=== PATIENT | female | born 1935 | race Caucasian/White ===

== ENCOUNTER 2023-01-19 16:18 | Emergency (ER) | payer MEDICARE ==
[2023-01-19 16:44] LABS: BASOPHILS ABSOLUTE AUTO 0.02 K/uL (0.00-0.20); BASOPHILS PERCENT AUTO 0.3 % (0.0-2.0); EOSINOPHILS ABSOLUTE AUTO 0.13 K/uL (0.00-0.50); EOSINOPHILS PERCENT AUTO 1.8 % (0.0-5.0); HEMATOCRIT 33.9 % (34.0-46.0); HEMOGLOBIN 10.9 g/dL (11.7-15.5); LYMPHOCYTES ABSOLUTE AUTO 1.73 K/uL (0.50-3.50); LYMPHOCYTES PERCENT AUTO 24.4 % (10.0-50.0); MEAN CORPUSCULAR HGB CONC 32.2 g/dL (31.7-36.0); MEAN CORPUSCULAR VOLUME 96.3 fL (84.0-98.0); MONOCYTES ABSOLUTE AUTO 0.65 K/uL (0.00-1.00); MONOCYTES PERCENT AUTO 9.2 % (2.0-14.0); NEUTROPHILS ABSOLUTE AUTO 4.57 K/uL (1.40-7.00); NEUTROPHILS PERCENT AUTO 64.3 % (45.0-80.0); PLATELET COUNT,PLT 257 K/uL (150-350); RED BLOOD CELL COUNT 3.52 M/uL (3.77-5.09); RED CELL DISTRIBUTION WIDTH 12.3 % (11.2-14.1); WHITE BLOOD CELL COUNT,WBC 7.1 K/uL (4.0-10.2)
[2023-01-19 16:54] LABS: ANION GAP 11.1 meq/L (7-15); CALCIUM 9.5 mg/dL (8.5-10.1); CARBON DIOXIDE,CO2 27.9 mmol/L (21.0-32.0); CREATININE 1.33 mg/dL (0.51-1.17); EST CRCL DRUG DOSING (CG) 24.76 mL/min
[2023-01-19] MEDS ORDERED: Sodium Chloride 0.9% 500 ML IV SCH (17:00)
[2023-01-19] MEDS: Acetaminophen 325 MG Tab ONE (17:10)
[2023-01-19] MEDS: Acetaminophen 325 MG Tab PO ONE (17:10)
[2023-01-19] MEDS: Lisinopril 20 MG Tab PO ONE (17:35)
[2023-01-19] MEDS: Lisinopril 20 MG Tab ONE (17:35)
[2023-01-19 18:12] LABS: BILIRUBIN,URINE NEGATIVE (NEGATIVE); COLOR,URINE YELLOW; GLUCOSE,URINE NEGATIVE (NEGATIVE); KETONES,URINE NEGATIVE (NEGATIVE); LEUKOCYTE ESTERASE,URINE SMALL (NEGATIVE); NITRITE,URINE NEGATIVE (NEGATIVE); OCCULT BLOOD,URINE NEGATIVE (NEGATIVE); PROTEIN,URINE NEGATIVE (NEGATIVE); UROBILINOGEN,URINE 0.2 E.U./dL (0.2-1.0)
[2023-01-19 18:24] LABS: APPEARANCE,URINE CLOUDY
[2023-01-19 18:25] LABS: BACTERIA,URINE RARE /HPF (NONE TO FEW); EPITHELIAL CELLS,URINE FEW /LPF; RBC,URINE 0-5 /HPF
[2023-01-19 18:37] VITALS: BP 152/73; PULSE 86
[2023-01-20] MEDS: Sodium Chloride 0.9% 500 ML IV ONE (12:13)
== END 2023-01-19 18:40 | disposition home or self-care (01) ==
LOC: LL.ED 16:18
DX: S09.90XA Unspecified injury of head, initial encounter (principal); R55 Syncope and collapse; I10 Essential (primary) hypertension; N18.9 Chronic kidney disease, unspecified; W18.30XA Fall on same level, unspecified, initial encounter
CPT/HCPCS: 36415; 70450; 80048; 81001; 81003; 84484; 85025; 87086; 93005; 99284; A9270-GY